=== PATIENT | female | born 2000 | race Caucasian/White ===

== ENCOUNTER 2022-10-18 02:17 | Emergency (ER) | payer OTHER ==
[2022-10-18 02:34] VITALS: BMI 30.1
[2022-10-18 03:50] LABS: BASO % 0.6 % (0-2.0); EOS % 3.6 % (0-4.5); HEMATOCRIT 39.7 % (32.4-45.2); LYMPH % 22.7 % (8-40); MCHC 32.8 g/dl (32.0-36.0); MEAN CELL VOLUME 82.4 fl (80-96); MEAN PLT VOLUME 10.1 fl (7.5-11.1); MONO % 6.4 % (3.8-10.2); NEUT % 66.7 % (42.8-82.8); PLATELET COUNT 212 10^3/uL (134-434); RBC 4.82 M/mm3 (3.60-5.2); RDW 13.6 % (11.6-15.6); WHITE BLOOD COUNT 9.1 K/mm3 (4.0-10.0)
[2022-10-18 04:02] LABS: URINE BARBITURATES NEGATIVE (NEGATIVE)
[2022-10-18 04:09] LABS: CHLORIDE 109 mmol/L (98-107); POTASSIUM 4.2 mmol/L (3.5-5.1); SODIUM 141 mmol/L (136-145)
[2022-10-18 04:12] LABS: ANION GAP 7 MMOL/L (8-16); BLOOD UREA NITROGEN 11.4 mg/dL (7-18); CO2 24 mmol/L (21-32); GLUCOSE,RANDOM 85 mg/dL (74-106)
[2022-10-18 04:15] LABS: CREATININE 0.6 mg/dL (0.55-1.3); SGOT/AST 13 U/L (15-37); SGPT/ALT 33 U/L (13-61)
[2022-10-18 04:16] LABS: BILIRUBIN,TOTAL 0.6 mg/dL (0.2-1); TOT PROT 7.2 g/dl (6.4-8.2)
[2022-10-18 04:17] LABS: COCAINE, UR NEGATIVE (NEGATIVE); METHADONE, UR NEGATIVE (NEGATIVE); OPIATES, URI NEGATIVE (NEGATIVE); PHENCYCLIDINE,URINE NEGATIVE (NEGATIVE); URINE AMPHETAMINES NEGATIVE (NEGATIVE); URINE BENZODIAZEPINES NEGATIVE (NEGATIVE)
[2022-10-18 04:18] LABS: ALK PHOS 107 U/L (45-117)
[2022-10-18 07:26] VITALS: BP 100/65; PULSE 75; RESP 16; TEMP 98.8
== END 2022-10-18 13:05 | disposition home or self-care (01) ==
LOC: JER 02:17
DX: T14.91XA Suicide attempt, initial encounter (principal); T54.3X1A Toxic effect of corrosive alkalis and alkali-like substances, accidental (unintentional), initial encounter; F32.A Depression, unspecified
CPT/HCPCS: 36415; 71046-TC-FY; 80053; 80307; 84703; 85025; 93005; 93010; 99285-25